=== PATIENT | male | born 1985 | race Caucasian/White ===

== ENCOUNTER 2017-12-05 10:27 | Inpatient (IN) | payer BC ==
[~2017-12-05] VITALS: Ht 167.6 cm; Wt 89.6 kg
--- NOTE | 2017-12-05 10:55 | NUR ---
[id number] FROM [facility]: ALOC, POSSIBLE OVERDOSED ON UNKNOWN Rx.SEEN BY MD FOR EVAL. VSS. SAFETY AND COMFORT MEASURES PROVIDED. WILL MONITOR.
[2017-12-05] MEDS ORDERED: IV NS 0.9% 1,000 ML BAG IV ONE (11:00)
[2017-12-05 11:12] LABS: BASOPHILS # (AUTO) 0.2 /CMM (0.0-0.2); EOSINOPHILS % (AUTO) 1.5 % (0.0-6.0); HEMATOCRIT 43 % (39-51); HEMOGLOBIN 14.5 g/dL (13.5-17.5); LYMPHOCYTES # (AUTO) 1.5 /CMM (0.8-4.8); LYMPHOCYTES % (AUTO) 16.6 % (20.0-44.0); MEAN CORPUSCULAR HEMOGLOBIN 26 PG (26.0-33.0); MEAN CORPUSCULAR HGB CONC 34 g/dl (31.0-36.0); MEAN CORPUSCULAR VOLUME 76 fL (80-96); MONOCYTES # (AUTO) 0.8 /CMM (0.1-1.30); MONOCYTES % (AUTO) 9.4 % (2.0-12.0); NEUTROPHILS # (AUTO) 6.3 /CMM (1.8-8.9); NEUTROPHILS % (AUTO) 70.5 % (43.0-81.0); PLATELET COUNT (AUTO) 216 /CMM (150-450); RDW COEFFICIENT OF VARIATION 17.2 (11.5-15.0); RED BLOOD CELL COUNT(AUTO) 5.58 MIL/uL (4.5-6.0); WHITE BLOOD COUNT (AUTO) 8.9 K/uL (4.3-11.0)
[2017-12-05] MEDS ORDERED: PREG200C PO (11:14)
[2017-12-05] MEDS ORDERED: CLON1TAB PO (11:14)
[2017-12-05] MEDS ORDERED: FAMO40TA7 PO (11:14)
[2017-12-05] MEDS ORDERED: BUPR1FIL3 SL (11:14)
[2017-12-05] MEDS ORDERED: PARO40TA PO (11:14)
[2017-12-05] MEDS ORDERED: MAG30ORA PO (11:17)
[2017-12-05] MEDS ORDERED: IBUP-1957 PO (11:17)
[2017-12-05] MEDS ORDERED: BUPR1FIL5 SL (11:17)
[2017-12-05] MEDS ORDERED: DIPH50CA4 PO ×2 (11:17)
[2017-12-05] MEDS ORDERED: MAGN400O6 PO (11:17)
[2017-12-05] MEDS ORDERED: ACET-2605 PO (11:17)
[2017-12-05 11:19] LABS: CALCIUM, SERUM 8.1 mg/dL (8.5-10.1); CARBON DIOXIDE 29 mmol/L (21-32); CHLORIDE 105 mmol/L (98-107); CREATININE 1.4 mg/dL (0.6-1.3); GLUCOSE 103 mg/dL (74-106); POTASSIUM 4.2 mmol/L (3.5-5.1); SODIUM SERUM 138 mmol/L (136-145); UREA NITROGEN, BLOOD 23 mg/dL (7-18)
[2017-12-05 11:24] LABS: ALANINE AMINOTRANSFERASE 522 U/L (12-78); ALBUMIN 3.6 g/dL (3.4-5.0); ALKALINE PHOSPHATASE 142 U/L (46-116); ASPARTATE AMINOTRANSFERASE 179 U/L (15-37); BILIRUBIN,DIRECT 0.1 mg/dL (0.0-0.2); BILIRUBIN,TOTAL 0.4 mg/dL (0.2-1.0); TOTAL PROTEIN, SERUM 7.8 g/dL (6.4-8.2)
[2017-12-05 11:25] LABS: ACETAMINOPHEN < 2 ug/ml (10-30); ALCOHOL, BLOOD < 3 mg/dL (0-0)
--- NOTE | 2017-12-05 11:35 | NUR ---
URINE SAMPLE OBTAINED VIA IN AND OUT CATH. SENT.
[2017-12-05 11:50] LABS: APPEARANCE,URINE Clear (CLEAR); BILIRUBIN,URINE SMALL (NEGATIVE); BLOOD, URINE Negative Ery/uL (NEGATIVE); COLOR,URINE Yellow (YELLOW); KETONES,URINE 15 (NEGATIVE); LEUKOCYTE ESTERASE ,URINE Negative (NEGATIVE); NITRITE, URINE Negative (NEGATIVE); PROTEIN,URINE 100 mg/dl (NEGATIVE); UGLUCOSE Negative (NEGATIVE); UROBILINOGEN,URINE 0.2 EU/dL (0.2)
[2017-12-05 12:03] LABS: BACTERIA,URINE None seen /HPF (None Seen); RBC,URINE 0-2 /HPF (0-2); SQUAMOUS EPITHELIAL CELL,UR Few /HPF (None Seen); WBC,URINE 0-2 /HPF (0-3)
[2017-12-05 12:04] LABS: HYALINE CASTS, URINE Few /LPF (None Seen)
--- NOTE | 2017-12-05 12:44 | NUR ---
PT TAKEN TO CT.
--- NOTE | 2017-12-05 13:30 | NUR ---
REPORT GIVEN TO JORGE PAULSON FOR MS.
--- NOTE | 2017-12-05 13:45 | NUR ---
RN NOTES PT WAS BROUGHT UP IN STABLE CONDITION ACCOMPANIED BY EVAPORATOR SUPERVISOR AND HANDCUFFED TO THE BED. PT IS SLEEPING IN SUPINE POSITION. IV ON L HAND INTACT AND PATENT. PT ON RA, RESPIRATIONS ARE EVEN AND UNLABORED. NO SIGNS OF DISTRESS NOTED. SAFETY MEASURES ARE IN PLACE, CALL LIGHT IS IN REACH. WILL CONTINUE TO MONITOR.
[2017-12-05] MEDS ORDERED: HYDROCODONE/APAP 10/325MG 1 EA TABLET PO PRN (14:00)
[2017-12-05] MEDS ORDERED: LORAZEPAM INJ 2 MG/ML VIAL IV PRN (14:00)
[2017-12-05] MEDS ORDERED: MAG HYDROX/AL HYDROX/SIMETH 30 ML UDC PO PRN (14:00)
[2017-12-05] MEDS ORDERED: ACETAMINOPHEN 325 MG TABLET PO PRN (14:00)
[2017-12-05] MEDS ORDERED: HYDROCODONE/APAP 5/325MG 1 EACH TABLET PO PRN (14:00)
[2017-12-05] MEDS ORDERED: ZOLPIDEM TARTRATE 5 MG TABLET PO PRN (14:00)
[2017-12-05] MEDS ORDERED: MAGNESIUM HYDROXIDE 30 ML UDC PO PRN (14:00)
[2017-12-05] MEDS ORDERED: ONDANSETRON HCL/PF 4 MG/2 ML VIAL IVP PRN (14:00)
[2017-12-05 14:30] VITALS: BP 105/65
[2017-12-05 16:00] VITALS: BP 105/65
--- NOTE | 2017-12-05 17:30 | NUR ---
RN NOTES CUSTODY OFFICERS INFORMED THAT PT STATED "I MISS YOU SO MUCH MOM, I DONT WANT TO GO ON WITH LIFE ANYMORE. I USE DRUGS TO PROCESS THIS, BUT ITS NOT WORKING ANYMORE." WILL ENDORSE TO HAVE PSYCH EVAL FOR SI ONCE PT IS MORE AWAKE. ROSALINDA ALBARADO MADE AWARE, MISSY ORDERED.
--- NOTE | 2017-12-05 18:56 | NUR ---
RN NOTES PT IS SLEEPING IN BED, COMFORTABLY WITH HOB ELEVATED. PT ON RA, RESPIRATIONS ARE EVEN AND UNLABORED. IV ON L HAND INTACT AND RUNNING NS @ 125ML/HR. NO SIGNS OF DISTRESS NOTED. SAFETY MEASURES ARE IN PLACE, CALL LIGHT IS IN REACH. WILL ENDORSE TO MATERIALS ASSISTANT RN FOR CONTINUITY OF CARE.
[2017-12-05] MEDS: IV NS 0.9% 1,000 ML IV PRN (20:08)
--- NOTE | 2017-12-05 20:14 | NUR ---
MS/RN PATIENT IS AWAKE, ALERT, RIGHT NOW AND WOULD LIKE TO EAT, PATIENT IS NPO SINCE ADMISSION DUE TO ENCEPHALOPATHY AND LETHARGY. CALLED [facility], LEFT MESSAGE.
--- NOTE | 2017-12-05 20:54 | NUR ---
MS/RN PATIENT REFUSES VITAL SIGNS SINCE 20:00.
--- NOTE | 2017-12-05 21:45 | NUR ---
MS/RN NO CALL BACK YET FROM DR. MONTES, THE MD PURIFICATION OPERATOR, DID A F/U CALL, LEFT MESSAGE.
--- NOTE | 2017-12-05 22:19 | NUR ---
MS/RN DR. JYOTI SHIPMAN CALLED BACK WITH DIET ORDER RECEIVED. CARRIED OUT.
[2017-12-06] MEDS: IV NS 0.9% 1,000 ML IV PRN (01:04)
[2017-12-06 06:09] LABS: BASOPHILS % (AUTO) 0.5 % (0.0-2.0); EOSINOPHILS % (AUTO) 5.3 % (0.0-6.0); HEMATOCRIT 42 % (39-51); HEMOGLOBIN 13.7 g/dL (13.5-17.5); LYMPHOCYTES # (AUTO) 1.8 /CMM (0.8-4.8); LYMPHOCYTES % (AUTO) 31.2 % (20.0-44.0); MEAN CORPUSCULAR HEMOGLOBIN 26 PG (26.0-33.0); MEAN CORPUSCULAR HGB CONC 33 g/dl (31.0-36.0); MEAN CORPUSCULAR VOLUME 80 fL (80-96); MONOCYTES # (AUTO) 0.8 /CMM (0.1-1.30); MONOCYTES % (AUTO) 13.1 % (2.0-12.0); NEUTROPHILS # (AUTO) 2.9 /CMM (1.8-8.9); NEUTROPHILS % (AUTO) 49.9 % (43.0-81.0); PLATELET COUNT (AUTO) 182 /CMM (150-450); RDW COEFFICIENT OF VARIATION 18.5 (11.5-15.0); RED BLOOD CELL COUNT(AUTO) 5.26 MIL/uL (4.5-6.0); WHITE BLOOD COUNT (AUTO) 5.8 K/uL (4.3-11.0)
[2017-12-06 06:42] LABS: CALCIUM, SERUM 7.5 mg/dL (8.5-10.1); CREATININE 1.3 mg/dL (0.6-1.3); MAGNESIUM 2.2 mg/dL (1.8-2.4); PHOSPHORUS 3.2 mg/dL (2.5-4.9)
--- NOTE | 2017-12-06 07:10 | NUR ---
RN NOTES PT IS LAYING DOWN IN BED, SLEEPING WITH SITTER AT BEDSIDE. PT ON RA, RESPIRATIONS ARE EVEN AND UNLABORED. IV ON L HAND INTACT AND RUNNING NS @ 125ML/HR. NO SIGNS OF DISTRESS NOTED. SAFETY MEASURES ARE IN PLACE, CALL LIGHT IS IN REACH. WILL CONTINUE TO MONITOR.
--- NOTE | 2017-12-06 07:16 | NUR ---
MS/RN PATIENT IS STILL SLEEPING AT THIS TIME, SITTER AT BEDSIDE, COMFORTABLE, NO DISTRESS NOTED, ALL NEEDS ATTENDED AT THIS TIME. WILL CONTINUE TO MONITOR.
[2017-12-06 08:00] VITALS: BP 120/57
[2017-12-06] MEDS ORDERED: PANTOPRAZOLE 40 MG VIAL IV SCH (09:00)
--- NOTE | 2017-12-06 12:53 | NUR ---
Social service consult requested by VERENA TELLEZ for drug use and OD. Pt. is a 32 year old male who was admitted to [facility] for liver failure and drug OD. SW met with pt. bedside. Pt. is alert and oriented x 4. Pt. has a sitter bedside. Pt. states he resides at [facility] located at [address] [place] . Pt. states the contact lens curve grinder at [facility] is Chema Rodas. Pt. stated he has been at the [facility] for the past seven years. Pt. states he his not suicidal and stated in ED he was because he was high on benzo's. Pt. was evaluated by snuff drier Daniel Esquivel, he spoke to Papito Marte at the facility who stated that patient has a upcoming court date so they were weening him from Suboxone, Clonidine and Valium but this apparently was not helping so he ordered Cocaine Klonopin and Xanax from an outside drug dealer who delivered them to the patient at the facility gate. Patient was found altered with low vitals so 911 was called. [employer] also came to the facility and found out there were outstanding warrants form [facility] so [employer] placed him in custody but apparently the nursing staff stated the police left pt. here with a ticket. According to Daniel Hickey, pt. is emphatic and says he was not suicidal, is not suicidal nor was this a suicide attempt. Pt. has psychiatric history of Bipolar Disorder. Pt. has a therapist and a psychiatrist at the facility. Pt. 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 Pt. last used cocaine yesterday. According to clinician Daniel Esquivel, pt. francois not meet 5150 criteria. Pt. agrees to go back to [facility] once medically cleared.
--- NOTE | 2017-12-06 15:10 | NUR ---
RN NOTES PT WAS DISCHARGED IN STABLE CONDITION TO [facility], ACCOMPANIED BY STAFF FROM THE FACILITY. IV AND ID BAND WERE REMOVED. DISCHARGE INSTRUCTIONS WERE GIVEN TO PT AND WAS TOLD TO F/U WITH PCP WITHIN 1-2 WEEKS. PT VERBALIZED UNDERSTANDING AND SAID HE WILL F/U AT THE FACILITY. EDUCATIONAL MATERIALS WERE GIVEN ON DIAGNOSIS WELL GENERAL EDUCATION. 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
== END 2017-12-06 15:10 | disposition other institution (70) | DRG 684 ==
LOC: ER 10:28 → MED 13:05
PROVIDERS: ADMIT Nurse Practitioner Acute Care; ATTEND Nurse Practitioner Acute Care
DX: N17.0 Acute kidney failure with tubular necrosis (principal); K76.0 Fatty (change of) liver, not elsewhere classified; F19.10 Other psychoactive substance abuse, uncomplicated; E86.1 Hypovolemia; F32.9 Major depressive disorder, single episode, unspecified; F41.9 Anxiety disorder, unspecified; Z79.899 Other long term (current) drug therapy; Z68.31 Body mass index [BMI] 31.0-31.9, adult; E66.9 Obesity, unspecified; R74.0 Nonspecific elevation of levels of transaminase and lactic acid dehydrogenase [LDH]
CPT/HCPCS: 36415; 70450-TC; 76705-TC; 80048-TC; 80076-TC; 80305; 81000-TC; 83735-TC; 84100-TC; 85025-TC; 87081-TC; A4606; C9113; G0480; J2060; J7030; Z7610